=== PATIENT | female | born 1995 | race Caucasian/White ===

== ENCOUNTER 2021-03-20 20:01 | Inpatient (IN) | payer OTHER ==
[2021-03-20 21:29] LABS: HGB 12.2 g/dl (12.5-16.0); MCH 31.1 pg (25.0-31.0); MCHC 33.9 g/dL (32.0-36.0); MCV 91.8 fL (78.0-100.0); RBC 3.92 M/uL (4.20-5.40); RDW 13.8 % (11.5-14.0); WBC 11.1 K/uL (4.0-10.5)
[2021-03-20 21:31] LABS: BILIRUBIN NEGATIVE (NEGATIVE); BLOOD NEGATIVE Ery/uL (NEGATIVE); CLARITY CLEAR (CLEAR); COLOR YELLOW (YELLOW); GLUCOSE (U) NORMAL (NORMAL); LEUKOCYTES NEGATIVE Leu/uL (NEGATIVE); NITRITE NEGATIVE (NEGATIVE); PROTEIN NEGATIVE (NEGATIVE); UROBILINOGEN 0.2 mg/dL (0.2-1.0)
[2021-03-22 06:46] LABS: HCT 32.4 % (37.0-47.0); MCH 31.3 pg (25.0-31.0); MPV 9.9 fL (6.0-9.5); RBC 3.52 M/uL (4.20-5.40); RDW 13.8 % (11.5-14.0); WBC 15.6 K/uL (4.0-10.5)
[2021-03-23] MEDS ORDERED: COLACE100 MG PO (12:00)
[2021-03-23] MEDS ORDERED: IBUPROFEN800 MG PO (12:00)
[2021-03-23] MEDS ORDERED: PRENATAL FORMU1 EACH PO (12:01)
== END 2021-03-23 14:51 | disposition home or self-care (01) | DRG 807 ==
LOC: FOD 20:01 → FOB 20:01 → FOD 20:18 → FOB 20:19
PROVIDERS: Obstetrics & Gynecology; ADMIT Obstetrics & Gynecology
PROC: 10E0XZZ Delivery of Products of Conception, External Approach (ICD-10-PCS; principal; 2021-03-21)
PROC: 0KQM0ZZ Repair Perineum Muscle, Open Approach (ICD-10-PCS; 2021-03-21)
DX: O99.214 Obesity complicating childbirth (principal); Z37.0 Single live birth; Z3A.40 40 weeks gestation of pregnancy; K42.9 Umbilical hernia without obstruction or gangrene; O70.1 Second degree perineal laceration during delivery; O99.892 Other specified diseases and conditions complicating childbirth; Z20.822 Contact with and (suspected) exposure to COVID-19; O69.81X0 Labor and delivery complicated by cord around neck, without compression, not applicable or unspecified
CPT/HCPCS: 36415; 81003; 86850; 86900; 86901; J0595; J7120; U0002